=== PATIENT | female | born 1960 | race Hispanic/Latino ===

== ENCOUNTER 2018-01-06 15:25 | Emergency (ER) | payer SELFPAY ==
--- NOTE | 2018-01-06 16:34 | RAD REPORT ---
EXAM DESCRIPTION: CT - Head Brain Wo Cont - 01/06/2018 4:21 pm CLINICAL HISTORY: Right arm numbness since yesterday COMPARISON: None. TECHNIQUE: Computed axial tomography of the head was obtained. IV contrast was not requested. All CT scans are performed using dose optimization technique as appropriate and may include automated exposure control or mA/KV adjustment according to patient size. FINDINGS: 15 millimeter subtle low-density area is present within the posterior left frontal lobe. An intracranial bleed is not seen . The ventricles are normal in caliber. No extra-axial fluid collection is noted. Fluid within the sinuses/ mastoids is not seen. IMPRESSION: Small low-density area within the left frontal lobe may represent an acute infarct. MRI is recommended
--- NOTE | 2018-01-06 16:41 | RAD REPORT ---
EXAM DESCRIPTION: Abdelrahman Single View01/06/2018 4:35 pm CLINICAL HISTORY: Chest pain COMPARISON: none FINDINGS: The lungs appear clear of acute infiltrate. The heart is normal size IMPRESSION: No acute abnormalities displayed
[2018-01-06 16:53] LABS: Urine Bacteria >50 /HPF (<20); Urine Culture Reflex Order REFLEXED; Urine RBC <5 /HPF (NONE SEEN)
[2018-01-06 17:00] LABS: Absolute Lymphocytes (CBC) 2.2 K/uL (0.7-4.9); Absolute Monocytes 0.5 K/uL (0.1-1.3); Basophils % 0.6 % (0-1.3); Eosinophils % 3.9 % (0-4.4); Hematocrit 40.9 % (36.0-45.0); Lymphocytes % 27.8 % (15.3-44.8); MCH 29.1 pg (27.0-35.0); MCV 87.1 fL (80-100); MPV 8.4 fL (7.6-11.3); Monocytes % 5.9 % (3.3-12.3)
[2018-01-06] MEDS ORDERED: CLOPIDOGREL 75 MG TABLET ONE (17:00)
[2018-01-06] MEDS ORDERED: ASPIRIN 325 MG TAB ONE (17:00)
[2018-01-06 17:01] LABS: Urine Blood NEGATIVE (NEG); Urine Glucose 2+ (NEG); Urine Protein NEGATIVE (NEG); Urine pH 5.5 (5.0-7.0)
[2018-01-06 17:07] LABS: Protime INR 0.97
[2018-01-06] MEDS ORDERED: CEFTRIAXONE/SWI 1gm 1 GM/10 ML SYR ONE (17:23)
[2018-01-06 17:24] LABS: ALT/SGPT 37 U/L (12-78); AST/SGOT 18 U/L (15-37); Albumin 3.7 g/dL (3.4-5.0); Alkaline Phosphatase 103 U/L (45-117); BUN Blood Urea Nitrogen 13 mg/dL (7-18); Bicarbonate 31 mmol/L (21-32); Bilirubin Direct < 0.1 mg/dL (0-0.2); Bilirubin Total 0.2 mg/dL (0.2-1.0); CKMB Creatine Kinase MB < 1.0 ng/mL (0.3-3.6); Creatine Phosphokinase 52 U/L (26-192); Glucose Level 170 mg/dL (74-106); Magnesium 1.7 mg/dL (1.8-2.4); NT PRO-BNP 189 pg/mL (<125); Potassium 3.8 mmol/L (3.5-5.1); Protein, Total 7.9 g/dL (6.4-8.2); Sodium Level 142 mmol/L (136-145)
--- NOTE | 2018-01-06 17:32 | EDPHYS ---
Physician Documentation [facility] Name: Aikko Lee Age: 57 yrs Sex: Female : 1960 Arrival Date: 01/06/2018 Time: 15:28 Bed 14 Private MD: ED Physician Chapito Barraza HPI: 01/06 16:10 This 57 yrs old Female presents to ER via Ambulatory with complaints of right pm1 sided facial numbness. 16:10 The patient presents to the emergency department with paresthesias of the right side of pm1 the face, dorsal aspect of right forearm, difficulty with writing with right hand. Onset: The symptoms/episode began/occurred yesterday, at 17:00. Context: occurred outdoors, occurred while the patient was walking, while leaving work. Associated signs and symptoms: Pertinent positives: paresthesias, Pertinent negatives: altered mental status, fever, headache, seizure, syncope, near-syncope, blurred vision, loss of vision. Severity of symptoms: in the emergency department the symptoms have improved mildly, after taking a aspirin at home yesterday. Patient's baseline: Neuro: alert and fully oriented, Motor: no deficits, Ambulation: walks without assistance, Speech: normal. Current symptoms: paraesthesia to the right side of her face and right forearm. The patient has not experienced similar symptoms in the past. Historical: - Allergies: 15:38 Bactrim; aj - Home Meds: 15:38 aspirin 325 mg Oral TbEC 1 tab once daily [Active]; gabapentin 300 mg Oral cap 1 cap aj FIVE TIMES A DAY [Active]; metformin 1,000 mg Oral tab 1 tab 2 times per day [Active]; - PMHx: 15:38 Diabetes - NIDDM; CAD; "Minor heart attacks"; aj - PSHx: 15:38 Cholecystectomy; aj - Immunization history:: Adult Immunizations up to date. - Social history:: Smoking status: Patient/guardian denies using tobacco. - Ebola Screening: : Patient negative for fever greater than or equal to 101.5 degrees Fahrenheit, and additional compatible Ebola Virus Disease symptoms Patient denies exposure to infectious person Patient denies travel to an Ebola-affected area in the 21 days before illness onset No symptoms or risks identified at this time. ROS: 16:10 Constitutional: Negative for fever, chills, and weight loss, Eyes: Negative for injury, pm1 pain, redness, and discharge, ENT: Negative for injury, pain, and discharge, Neck: Negative for injury, pain, and swelling, Cardiovascular: Negative for chest pain, palpitations, and edema, Respiratory: Negative for shortness of breath, cough, wheezing, and pleuritic chest pain, Abdomen/GI: Negative for abdominal pain, nausea, vomiting, diarrhea, and constipation, Back: Negative for injury and pain, MS/Extremity: Negative for injury and deformity, Skin: Negative for injury, rash, and discoloration. 16:10 Neuro: Positive for numbness, of the dorsal aspect of right forearm and right side of her face. 16:10 Neuro: Positive for difficulty with writing with her right hand. pm1 Exam: 16:10 Constitutional: This is a well developed, well nourished patient who is awake, alert, pm1 and in no acute distress. Head/Face: Normocephalic, atraumatic. Eyes: Pupils equal round and reactive to light, extra-ocular motions intact. Lids and lashes normal. Conjunctiva and sclera are non-icteric and not injected. Cornea within normal limits. Periorbital areas with no swelling, redness, or edema. ENT: Nares patent. No nasal discharge, no septal abnormalities noted. Tympanic membranes are normal and external auditory canals are clear. Oropharynx with no redness, swelling, or masses, exudates, or evidence of obstruction, uvula midline. Mucous membranes moist. Neck: Trachea midline, no thyromegaly or masses palpated, and no cervical lymphadenopathy. Supple, full range of motion without nuchal rigidity, or vertebral point tenderness. No Meningismus. Chest/axilla: Normal chest wall appearance and motion. Nontender with no deformity. No lesions are appreciated. Cardiovascular: Regular rate and rhythm with a normal S1 and S2. No gallops, murmurs, or rubs. Normal PMI, no JVD. No pulse deficits. Respiratory: Lungs have equal breath sounds bilaterally, clear to auscultation and percussion. No rales, rhonchi or wheezes noted. No increased work of breathing, no retractions or nasal flaring. Abdomen/GI: Soft, non-tender, with normal bowel sounds. No distension or tympany. No guarding or rebound. No evidence of tenderness throughout. Back: No spinal tenderness. No costovertebral tenderness. Full range of motion. Skin: Warm, dry with normal turgor. Normal color with no rashes, no lesions, and no evidence of cellulitis. MS/ Extremity: Pulses equal, no cyanosis. Neurovascular intact. Full, normal range of motion. 16:10 Neuro: Orientation: is normal, Mentation: is normal, Memory: is normal, Cranial nerves: normal except sensory trigeminal, Decreased sensation on right forehead, right cheek, and right jaw, no facial droop present. Cerebellar function: dysmetria is noted on the right, Normal with left hand, Motor: moves all fours, strength is 5/5 in all extremities, Sensation: numbness, of the dorsal aspect of right forearm - lateral cutaneous innervation - unable to differentiate sharp and dull, seizure activity, is not displayed by the patient. 16:10 Neuro: Cerebellar function: Romberg testing is negative. pm1 Vital Signs: 15:38 BP 170 / 94; Pulse 78; Resp 16; Temp 99.2; Pulse Ox 97% on R/A; Weight 111.13 kg; aj Height 5 ft. 4 in. (162.56 cm); 16:30 BP 148 / 59; Pulse 71; Resp 20; Pulse Ox 100% on R/A; rb1 17:30 BP 157 / 63; Pulse 70; Resp 21; Pulse Ox 98% on R/A; Pain 0/10; rb1 18:00 BP 134 / 54; Pulse 67; Resp 20; Pulse Ox 97% on R/A; rb1 18:45 BP 134 / 65; Pulse 62; Resp 19; Pulse Ox 97% ; Pain 5/10; rb1 19:45 BP 154 / 59; Pulse 68; Resp 18; Pulse Ox 98% on R/A; Pain 0/10; aa1 15:38 Body Mass Index 42.05 (111.13 kg, 162.56 cm) aj NIH Stroke Scale Scores: 16:00 NIHSS Score: 2 rb1 16:10 NIHSS Score: 2 pm1 MDM: 15:57 Patient medically screened. pm1 16:46 ED course: Patient with onset of symptoms 1700 yesterday, therefore patient is not a pm1 TPA candidate (Onset of symptoms greater than 3 hours) and not given TPA. 17:21 Data reviewed: vital signs. Data interpreted: Pulse oximetry:. Counseling: I had a pm1 detailed discussion with the patient and/or guardian regarding: the historical points, exam findings, and any diagnostic results supporting the discharge/admit diagnosis, radiology results, the need to transfer to another facility, for higher level of care, [facility] does not immediately have the required specialist. 17:46 Physician consultation: Neurologist Jovanny was contacted at 17:46, regarding regarding pm1 transfer, patient's condition, and will see patient. 17:55 Physician consultation: Hospitalist Florentino was contacted at 17:55, regarding pm1 admission, patient's condition, and will see patient. 01/06 16:08 Order name: Basic Metabolic Panel; Complete Time: 17:32 pm1 01/06 16:08 Order name: CBC with Diff; Complete Time: 17:08 pm01/06 16:08 Order name: Ckmb; Complete Time: 17:32 pm01/06 16:08 Order name: CPK; Complete Time: 17:32 pm01/06 16:08 Order name: LFT's; Complete Time: 17:32 pm01/06 16:08 Order name: Magnesium; Complete Time: 17:32 pm01/06 16:08 Order name: NT PRO-BNP; Complete Time: 17:32 pm1 01/06 16:08 Order name: PT-INR; Complete Time: 17:21 pm01/06 16:08 Order name: Ptt, Activated; Complete Time: 17:21 pm01/06 16:08 Order name: Troponin (emerg Dept Use Only); Complete Time: 17:21 pm01/06 16:08 Order name: XRAY Chest (1 view); Complete Time: 16:46 pm01/06 16:37 Order name: Urine Microscopic Only; Complete Time: 17:08 ag 01/06 16:54 Order name: Urine Dipstick--Ancillary (enter results); Complete Time: 17:08 ss 01/06 16:54 Order name: Urine Culture EDMS 01/06 16:08 Order name: EKG; Complete Time: 16:09 pm01/06 16:08 Order name: Cardiac monitoring; Complete Time: 17:04 pm01/06 16:08 Order name: EKG - Nurse/Tech; Complete Time: 17:04 pm01/06 16:08 Order name: IV Saline Lock; Complete Time: 17:04 pm1 01/06 16:08 Order name: Labs collected and sent; Complete Time: 17:04 pm1 01/06 16:08 Order name: O2 Per Protocol; Complete Time: 17:05 pm1 01/06 16:08 Order name: O2 Sat Monitoring; Complete Time: 17:05 pm1 01/06 16:08 Order name: Urine Dipstick-Ancillary (obtain specimen); Complete Time: 17:11 pm1 01/06 16:08 Order name: CT Head Brain wo Cont; Complete Time: 16:46 pm1 01/06 16:21 Order name: Stroke Swallow Screen; Complete Time: 17:03 pm1 Administered Medications: 16:56 Drug: Aspirin 325 mg Route: PO; rb1 17:18 Follow up: Response: No adverse reaction rb1 16:56 Drug: PlaVIX 75 mg Route: PO; rb1 17:18 Follow up: Response: No adverse reaction rb1 17:40 Drug: Rocephin 1 grams Route: IV; Rate: calculated rate; Site: left antecubital; rb1 18:00 Follow up: Response: No adverse reaction; IV Status: Completed infusion rb1 18:35 Drug: Magnesium Sulfate 1 grams Route: IVPB; Infused Over: 1 hrs; Site: left ss antecubital; 19:35 Follow up: IV Status: Completed infusion aa1 18:35 Drug: foLIC Acid 1 mg Route: IVPB; Site: left antecubital; ss 19:35 Follow up: IV Status: Completed infusion aa1 18:52 Drug: Tylenol 500 mg Route: PO; rb1 19:35 Follow up: Response: No adverse reaction; Pain is decreased aa1 Disposition: 01/07 07:02 Co-signature as Attending Physician, Chapito Barraza MD I agree with the assessment and nidia plan of care. Disposition: 01/06/18 17:32 Transfer ordered to [facility]. Diagnosis is Cerebral infarction. - Reason for transfer: Higher level of care. - Accepting physician is [facility]. - Condition is Stable. - Problem is new. - Symptoms have improved. NIH Stroke Scale - NIH Stroke Score Date: 01/06/2018 Time: 16:00 Total Score = 2 1a. Level of Consciousness (LOC) - 0(Alert) 1b. Level of Consciousness (LOC) (Year \\T\\ Age) - 0(Both) 1c. LOC Commands (Open \\T\\ Closes Eyes/Lining Repairer) - 0(Both) 2. Best Gaze (Lateral Gaze Paresis) - 0(Normal) 3. Visual Field Loss - 0(No visual loss) 4. Facial Palsy - 0(Normal) 5a. Left Arm: Motor (10-second hold) - 0(No drift) 5b. Right Arm: Motor (10-second hold) - 0(No drift) 6a. Left Leg: Motor (5-second hold - always test supine) - 0(No drift) 6b. Right Leg: Motor (5-second hold - always test supine) - 0(No drift) 7. Limb Ataxia (finger/nose \\T\\ heel/martinez - test with eyes open) - 1(Present in one limb) 8. Sensory Loss (pinprick arms/legs/face) - 1(Mild to moderate loss) 9. Best Language: Aphasia (description/naming/reading) - 0(No aphasia) 10. Dysarthria (speech clarity - read or repeat words) - 0(Normal) 11. Extinction and Inattention (visual/tactile/auditory/spatial/personal) - 0(No abnormality) Initials: rb1 NIH Stroke Scale - NIH Stroke Score Date: 01/06/2018 Time: 16:10 Total Score = 2 1a. Level of Consciousness (LOC) - 0(Alert) 1b. Level of Consciousness (LOC) (Year \\T\\ Age) - 0(Both) 1c. LOC Commands (Open \\T\\ Closes Eyes/Lining Repairer) - 0(Both) 2. Best Gaze (Lateral Gaze Paresis) - 0(Normal) 3. Visual Field Loss - 0(No visual loss) 4. Facial Palsy - 0(Normal) 5a. Left Arm: Motor (10-second hold) - 0(No drift) 5b. Right Arm: Motor (10-second hold) - 0(No drift) 6a. Left Leg: Motor (5-second hold - always test supine) - 0(No drift) 6b. Right Leg: Motor (5-second hold - always test supine) - 0(No drift) 7. Limb Ataxia (finger/nose \\T\\ heel/martinez - test with eyes open) - 1(Present in one limb) 8. Sensory Loss (pinprick arms/legs/face) - 1(Mild to moderate loss) 9. Best Language: Aphasia (description/naming/reading) - 0(No aphasia) 10. Dysarthria (speech clarity - read or repeat words) - 0(Normal) 11. Extinction and Inattention (visual/tactile/auditory/spatial/personal) - 0(No abnormality) Initials: pm1 Signatures: Dispatcher [employer] Madelyn Mendiola RN RN aa1 Angelica Webber RN RN aj Anderson, Corey, MD MD cha Smirch, Shelby, RN RN ss Barber, Rebecca, RN RN rb1 Marinas, Patrick, [employer]ER[employer] RAIL CAR PAINTER/SANDBLASTER pm1 Corrections: (The following items were deleted from the chart) 01/06 19:17 16:08 Urine Test ordered. pm1 aa1 20:22 17:32 01/06/2018 17:32 Transfer ordered to [facility]. aa1 Diagnosis is Cerebral infarction. Reason for transfer: Higher level of care. Accepting physician is [facility]. Condition is Stable. Problem is new. Symptoms have improved. pm1
--- NOTE | 2018-01-06 17:32 | ER ---
Nurse's Notes [facility] Name: Akiko Lee Age: 57 yrs Sex: Female : 1960 Arrival Date: 01/06/2018 Time: 15:28 Bed 14 Private MD: Diagnosis: Cerebral infarction Presentation: 01/06 15:37 Presenting complaint: Patient states: Reports numbness to right side of face and right aj forearm since 1700 yesterday. Patient reports symptoms improved after taking aspirin. Transition of care: patient was not received from another setting of care. Onset of symptoms was January 05, 2018 at 17:00. Risk Assessment: Do you want to hurt yourself or someone else? Patient reports no desire to harm self or others. Initial Sepsis Screen: Does the patient meet any 2 criteria? No. Patient's initial sepsis screen is negative. Does the patient have a suspected source of infection? No. Patient's initial sepsis screen is negative. Care prior to arrival: None. 15:37 Method Of Arrival: Ambulatory 15:37 Acuity: KESHA 3 aj Triage Assessment: 15:38 General: Appears in no apparent distress. comfortable, Behavior is calm, cooperative, aj appropriate for age. Pain: Denies pain. Neuro: Level of Consciousness is awake, alert, obeys commands, Oriented to person, place, time, situation, Appropriate for age. Neuro: Child Support Officer are equal bilaterally Moves all extremities. Full function Gait is steady, Speech is normal, Facial symmetry appears normal, Reports numbness in right sabianism, right zygomatic area, right cheek, right antecubital area and dorsal aspect of right forearm. Respiratory: Airway is patent Respiratory effort is even, unlabored, Respiratory pattern is regular, symmetrical. Derm: Skin is intact, is healthy with good turgor, Skin is pink, warm \\T\\ dry. normal. Historical: - Allergies: 15:38 Bactrim; aj - Home Meds: 15:38 aspirin 325 mg Oral TbEC 1 tab once daily [Active]; gabapentin 300 mg Oral cap 1 cap aj FIVE TIMES A DAY [Active]; metformin 1,000 mg Oral tab 1 tab 2 times per day [Active]; - PMHx: 15:38 Diabetes - NIDDM; CAD; "Minor heart attacks"; aj - PSHx: 15:38 Cholecystectomy; aj - Immunization history:: Adult Immunizations up to date. - Social history:: Smoking status: Patient/guardian denies using tobacco. - Ebola Screening: : Patient negative for fever greater than or equal to 101.5 degrees Fahrenheit, and additional compatible Ebola Virus Disease symptoms Patient denies exposure to infectious person Patient denies travel to an Ebola-affected area in the 21 days before illness onset No symptoms or risks identified at this time. Screenin:45 Abuse screen: Denies threats or abuse. Nutritional screening: No deficits noted. rb1 Tuberculosis screening: No symptoms or risk factors identified. Fall Risk None identified. 16:00 Patient has been NPO before screening. The patient is alert, able to follow commands. rb1 The patient does not exhibit slurred or garbled speech The patient is not exhibiting difficulty speaking. The patient does not exhibit difficulty understanding words. The patient is able to swallow own secretions with no drooling or need for suction. Patient tolerated one teaspoon of water. No drooling, immediate coughing, gurgling, or clearing of the throat was noted. The patient tolerated 90mL of water. No drooling, immediate coughing, gurgling, or clearing of the throat was noted. The patient passed the bedside swallow screening. Oral medications may be given as ordered. Contact Physician for further diet orders. Provider notified of bedside swallow screening results: Je Vergara NP. Assessment: 15:45 General: Appears in no apparent distress. comfortable, obese, Behavior is calm, rb1 cooperative. Pain: Denies pain. Neuro: Level of Consciousness is awake, alert, obeys commands, Oriented to person, place, time, situation, Child Support Officer are equal bilaterally Moves all extremities. Gait is steady, Speech is normal, Facial symmetry appears normal, Pupils are PERRLA, Reports numbness in right arm and right side of face since yesterday. Cardiovascular: Capillary refill < 3 seconds is brisk in bilateral fingers. Respiratory: Airway is patent Respiratory effort is even, unlabored, Respiratory pattern is regular, symmetrical. GI: No signs and/or symptoms were reported involving the gastrointestinal system. : No signs and/or symptoms were reported regarding the genitourinary system. Derm: Skin is dry, Skin is normal, Skin temperature is warm. Musculoskeletal: Range of motion: intact in all extremities. 16:40 Reassessment: Patient appears in no apparent distress at this time. No changes from rb1 previously documented assessment. 17:38 Reassessment: Patient and/or family updated on plan of care and expected duration. Pain rb1 level reassessed. Patient is alert, oriented x 3, equal unlabored respirations, skin warm/dry/pink. Family at bedside. Patient denies pain at this time. 18:00 Reassessment: Patient appears in no apparent distress at this time. Pt. and family rb1 updated on POC. 18:30 Reassessment: Tried to call [facility] to give report but was left on hold. rb1 18:38 Reassessment: Called report to CALOS Trevino at [facility]. Information from the [facility] was rb1 given and all test results. All questions asked and answered. 18:50 Reassessment: Patient appears in no apparent distress at this time. Patient and/or rb1 family updated on plan of care and expected duration. Pain level reassessed. Patient is alert, oriented x 3, equal unlabored respirations, skin warm/dry/pink. Updated pt. and family updated on POC. 19:37 Reassessment: Patient appears in no apparent distress at this time. Patient and/or aa1 family updated on plan of care and expected duration. Pain level reassessed. Patient is alert, oriented x 3, equal unlabored respirations, skin warm/dry/pink. Awaiting EMS for transfer. Reports headache improved. 20:02 Reassessment: Patient appears in no apparent distress at this time. Patient is alert, aa1 oriented x 3, equal unlabored respirations, skin warm/dry/pink. EMS present for transfer to [facility]. Vital Signs: 15:38 BP 170 / 94; Pulse 78; Resp 16; Temp 99.2; Pulse Ox 97% on R/A; Weight 111.13 kg; aj Height 5 ft. 4 in. (162.56 cm); 16:30 BP 148 / 59; Pulse 71; Resp 20; Pulse Ox 100% on R/A; rb1 17:30 BP 157 / 63; Pulse 70; Resp 21; Pulse Ox 98% on R/A; Pain 0/10; rb1 18:00 BP 134 / 54; Pulse 67; Resp 20; Pulse Ox 97% on R/A; rb1 18:45 BP 134 / 65; Pulse 62; Resp 19; Pulse Ox 97% ; Pain 5/10; rb1 19:45 BP 154 / 59; Pulse 68; Resp 18; Pulse Ox 98% on R/A; Pain 0/10; aa1 15:38 Body Mass Index 42.05 (111.13 kg, 162.56 cm) aj NIH Stroke Scale Scores: 16:00 NIHSS Score: 2 rb1 16:10 NIHSS Score: 2 pm1 ED Course: 15:28 Patient arrived in ED. mr 15:38 Triage completed. aj 15:38 Arm band placed on left wrist. Patient placed in an exam room. aj 15:45 Patient has correct armband on for positive identification. Placed in gown. Bed in low rb1 position. Call light in reach. Side rails up X2. threat monitoring analyst on. Pulse ox on. NIBP on. 15:57 Je Vergara NP is PHCP. pm1 15:57 Chapito Barraza MD is Attending Physician. pm1 16:21 CT completed. Patient tolerated procedure well. Patient moved to CT. Patient moved back ar from CT. 16:21 CT Head Brain wo Cont In Process Unspecified. EDMS 16:28 X-ray completed. Portable x-ray completed in exam room. Patient tolerated procedure ag1 well. 16:29 XRAY Chest (1 view) In Process Unspecified. EDMS 16:30 Breana Prajapati, CALOS is Primary Nurse. rb1 16:52 EKG done, by drinking water technician. reviewed by Je Vergara NP. sm3 17:10 Inserted saline lock: 20 gauge in left antecubital area, using aseptic technique. Blood ag collected. 17:11 Urine Culture Sent. ag 19:00 Report given to CALOS Joshi. rb1 20:07 No provider procedures requiring assistance completed. Patient transferred, IV remains aa1 in place. Administered Medications: 16:56 Drug: Aspirin 325 mg Route: PO; rb1 17:18 Follow up: Response: No adverse reaction rb1 16:56 Drug: PlaVIX 75 mg Route: PO; rb1 17:18 Follow up: Response: No adverse reaction rb1 17:40 Drug: Rocephin 1 grams Route: IV; Rate: calculated rate; Site: left antecubital; rb1 18:00 Follow up: Response: No adverse reaction; IV Status: Completed infusion rb1 18:35 Drug: Magnesium Sulfate 1 grams Route: IVPB; Infused Over: 1 hrs; Site: left ss antecubital; 19:35 Follow up: IV Status: Completed infusion aa1 18:35 Drug: foLIC Acid 1 mg Route: IVPB; Site: left antecubital; ss 19:35 Follow up: IV Status: Completed infusion aa1 18:52 Drug: Tylenol 500 mg Route: PO; rb1 19:35 Follow up: Response: No adverse reaction; Pain is decreased aa1 Outcome: 17:32 ER care complete, transfer ordered by . pm1 20:07 Transferred by ground EMS to [facility]. aa1 20:07 Condition: stable 20:07 Instructed on the need for transfer, Demonstrated understanding of instructions. 20:07 Patient left the ED. aa1 NIH Stroke Scale - NIH Stroke Score Date: 01/06/2018 Time: 16:00 Total Score = 2 1a. Level of Consciousness (LOC) - 0(Alert) 1b. Level of Consciousness (LOC) (Year \\T\\ Age) - 0(Both) 1c. LOC Commands (Open \\T\\ Closes Eyes/Core Machine Operator) - 0(Both) 2. Best Gaze (Lateral Gaze Paresis) - 0(Normal) 3. Visual Field Loss - 0(No visual loss) 4. Facial Palsy - 0(Normal) 5a. Left Arm: Motor (10-second hold) - 0(No drift) 5b. Right Arm: Motor (10-second hold) - 0(No drift) 6a. Left Leg: Motor (5-second hold - always test supine) - 0(No drift) 6b. Right Leg: Motor (5-second hold - always test supine) - 0(No drift) 7. Limb Ataxia (finger/nose \\T\\ heel/martinez - test with eyes open) - 1(Present in one limb) 8. Sensory Loss (pinprick arms/legs/face) - 1(Mild to moderate loss) 9. Best Language: Aphasia (description/naming/reading) - 0(No aphasia) 10. Dysarthria (speech clarity - read or repeat words) - 0(Normal) 11. Extinction and Inattention (visual/tactile/auditory/spatial/personal) - 0(No abnormality) Initials: rb1 NIH Stroke Scale - NIH Stroke Score Date: 01/06/2018 Time: 16:10 Total Score = 2 1a. Level of Consciousness (LOC) - 0(Alert) 1b. Level of Consciousness (LOC) (Year \\T\\ Age) - 0(Both) 1c. LOC Commands (Open \\T\\ Closes Eyes/Core Machine Operator) - 0(Both) 2. Best Gaze (Lateral Gaze Paresis) - 0(Normal) 3. Visual Field Loss - 0(No visual loss) 4. Facial Palsy - 0(Normal) 5a. Left Arm: Motor (10-second hold) - 0(No drift) 5b. Right Arm: Motor (10-second hold) - 0(No drift) 6a. Left Leg: Motor (5-second hold - always test supine) - 0(No drift) 6b. Right Leg: Motor (5-second hold - always test supine) - 0(No drift) 7. Limb Ataxia (finger/nose \\T\\ heel/martinez - test with eyes open) - 1(Present in one limb) 8. Sensory Loss (pinprick arms/legs/face) - 1(Mild to moderate loss) 9. Best Language: Aphasia (description/naming/reading) - 0(No aphasia) 10. Dysarthria (speech clarity - read or repeat words) - 0(Normal) 11. Extinction and Inattention (visual/tactile/auditory/spatial/personal) - 0(No abnormality) Initials: pm1 Signatures: Dispatcher [employer] EDMadelyn Kuhn RN RN aa1 Angelica Webber RN Courtney Gauthier mr Homa Adan, RN CALOS Yung, Lakeisha ag Ondina, Peggy ag1 Breana Prajapati, Je Abrams RN, NP TEXTILE COLORIST FORMULATOR pm1 Del Dale Shakira 3 Corrections: (The following items were deleted from the chart) 18:06 16:40 Patient has been NPO before screening. The patient is alert, able to rb1 follow commands. The patient does not exhibit slurred or garbled speech The patient is not exhibiting difficulty speaking. The patient does not exhibit difficulty understanding words. The patient is able to swallow own secretions with no drooling or need for suction. Patient tolerated one teaspoon of water. No drooling, immediate coughing, gurgling, or clearing of the throat was noted. The patient tolerated 90mL of water. No drooling, immediate coughing, gurgling, or clearing of the throat was noted. The patient passed the bedside swallow screening. Oral medications may be given as ordered. Contact Physician for further diet orders. Provider notified of bedside swallow screening results: Je Vergara NP rb1 20:24 20:22 Patient left the ED. aa1 aa1
--- NOTE | 2018-01-06 17:56 | EKG ---
Test Date: 2018-01-06 Test Time: 16:43:46 Table Attendant: LUIS MEASUREMENT RESULTS: Intervals: Rate: 71 MN: 164 QRSD: 80 QT: 402 QTc: 436 Burson: P: 30 MN: 164 QRS: -44 T: 41 INTERPRETIVE STATEMENTS: Normal sinus rhythm with sinus arrhythmia Left axis deviation Inferior infarct, age undetermined Cannot rule out Anterior infarct, age undetermined Abnormal ECG Compared to ECG 01/05/2006 02:17:39 Myocardial infarct finding now present T-wave abnormality no longer present Electronically Signed On 01-06-18 17:56:30 CDT by Jose Ramon Llanos
[2018-01-06] MEDS ORDERED: Magnesium Sulfate 1gm IVPB 1 GM/50 ML BAG IV ONE (18:28)
[2018-01-06] MEDS ORDERED: FOLIC ACID 5 MG/ML VIAL ONE (18:30)
[2018-01-06] MEDS ORDERED: ACETAMINOPHEN 500 MG TAB ONE (18:53)
== END 2018-01-06 20:22 | disposition short-term general hospital (02) ==
LOC: ER 15:25
DX: I63.9 Cerebral infarction, unspecified (principal); R29.702 NIHSS score 2; E11.9 Type 2 diabetes mellitus without complications; Z79.82 Long term (current) use of aspirin; Z88.1 Allergy status to other antibiotic agents
CPT/HCPCS: 36415; 70450; 71045; 80048; 80076; 81003; 81015; 82550; 82553; 83735; 83880; 84484; 85025; 85610; 85730; 87077; 87086; 87088; 87186; 93005; 96365; 96367; 96368; 99285; J0696; J3475

== ENCOUNTER 2024-10-08 10:43 | Emergency (ER) | payer SELFPAY ==
[2024-10-08] MEDS ORDERED: ASPIRIN EC 81 MG TAB PO ONE (10:51)
--- NOTE | 2024-10-08 11:42 | RAD REPORT ---
Procedure: Chest Single View HISTORY: Chest pain COMPARISON: 2018 FINDINGS: The lungs appear clear of acute infiltrate. No significant pleural effusion noted. The heart is normal size. Metallic structure overlies the left aspect of the heart presumably a loop recorder which should be c orrelated clinically. IMPRESSION: No acute abnormality is displayed.
[2024-10-08 12:16] LABS: Absolute Eosinophils 0.2 K/uL (0-0.5); Absolute Lymphocytes (CBC) 1.5 K/uL (0.7-4.9); Absolute Monocytes 0.5 K/uL (0.1-1.3); Absolute Neutrophil 5.1 K/uL (1.8-8.0); Basophils % 0.7 % (0-1.3); Eosinophils % 2.5 % (0-4.4); Hematocrit 36.2 % (36.0-45.0); Hemoglobin 12.1 g/dL (12.0-15.0); Lymphocytes % 20.7 % (15.3-44.8); MCH 28.9 pg (27.0-35.0); MCHC 33.5 g/dL (32.0-36.0); Monocytes % 6.9 % (3.3-12.3); Neutrophils % 69.2 % (41.7-73.7); Platelets 284 thou/uL (152-406); Red Cell Distribution Width 14.3 % (12.1-15.2)
[2024-10-08 12:37] LABS: ALT/SGPT 17 U/L (13-56); Albumin 3.4 g/dL (3.4-5.0); Albumin/Globulin Ratio 0.7 (1.1-1.8); Alkaline Phosphatase 112 U/L (45-117); Anion Gap 7.6 mEq/L (5.0-15.0); BUN Blood Urea Nitrogen 21 mg/dL (7-18); Bicarbonate 27 mEq/L (21-32); Bilirubin Total 0.3 mg/dL (0.2-1.0); Globulin 4.6 g/dL (2.3-3.5); Glomerular Filtration Rate 61 ml/min (=/>90); Glucose Level 166 mg/dL (74-106); Lipase 33 U/L (13-75); Potassium 3.6 mEq/L (3.5-5.1); Sodium Level 138 mEq/L (136-145); Troponin High Sensitivity 3.4 pg/mL (<58.9)
[2024-10-08 12:43] LABS: AST/SGOT < 10 U/L (15-37); Bilirubin Direct < 0.2 mg/dL (0-0.2); Bilirubin Indirect, Calculated 0.1 mg/dL (0.2-0.8)
--- NOTE | 2024-10-08 13:04 | ER ---
Nurse's Notes [facility] Name: Akiko Lee Age: 64 yrs Sex: Female : 1960 Arrival Date: 10/08/2024 Time: 10:43 Bed 19 Private MD: Diagnosis: Chest pain, unspecified Presentation: 10/08 10:51 Chief complaint: Patient states: Chest pain started yesterday at 1500. Intermittent. ld1 Coronavirus screen: At this time, the client does not indicate any symptoms associated with coronavirus-19. Ebola Screen: No symptoms or risks identified at this time. Initial Sepsis Screen: Does the patient meet any 2 criteria? No. Patient's initial sepsis screen is negative. Does the patient have a suspected source of infection? No. Patient's initial sepsis screen is negative. Risk Assessment: Do you want to hurt yourself or someone else? Patient reports no desire to harm self or others. Onset of symptoms was October 08, 2024. 10:51 Method Of Arrival: Ambulatory ld1 10:51 Acuity: KESHA 3 ld1 Triage Assessment: 10:53 General: Appears in no apparent distress. comfortable, Behavior is calm, cooperative, ld1 appropriate for age. Pain: Complains of pain in anterior aspect of left upper chest Pain does not radiate. Pain currently is 8 out of 10 on a pain scale. at worst was 8 out of 10 on a pain scale. Quality of pain is described as sharp, shooting, Pain began suddenly, Is intermittent. EENT: No signs and/or symptoms were reported regarding the EENT system. Neuro: Level of Consciousness is awake, alert, obeys commands, Oriented to person, place, time, situation. Cardiovascular: Capillary refill < 3 seconds Patient's skin is warm and dry. Rhythm is sinus rhythm. Respiratory: Airway is patent Respiratory effort is even, unlabored. GI: Abdomen is round non-distended. : No signs and/or symptoms were reported regarding the genitourinary system. Derm: No signs and/or symptoms reported regarding the dermatologic system. Musculoskeletal: No signs and/or symptoms reported regarding the musculoskeletal system. Historical: - Allergies: 10:52 Bactrim; ld1 - PMHx: 10:52 CAD; Diabetes - NIDDM; ld1 10:53 "Minor heart attacks"; ld1 10:55 CVA; ld1 - PSHx: 10:52 None; ld1 - Immunization history:: Adult Immunizations up to date. - Infectious Disease History:: Denies. - Social history:: Smoking status: Patient denies any tobacco usage or history of. - Family history:: not pertinent. Screenin:00 [facility] ED Fall Risk Assessment (Adult) History of falling in the last 3 months, aa5 including since admission No falls in past 3 months (0 pts) Confusion or Disorientation No (0 pts) Intoxicated or Sedated No (0 pts) Impaired Gait No (0 pts) Mobility Assist Device Used No (0 pt) Altered Elimination No (0 pt) Score/Fall Risk Level 0 - 2 = Low Risk Oriented to surroundings, Maintained a safe environment, Educated pt \\T\\ family on fall prevention, incl call for assistance when getting out of bed, Assessed \\T\\ reinforced patient's understanding of fall precautions. Abuse screen: Denies threats or abuse. Nutritional screening: No deficits noted. Tuberculosis screening: No symptoms or risk factors identified. Assessment: 12:00 General: Appears comfortable, Behavior is calm, cooperative. Pain: Complains of pain in aa5 anterior aspect of left upper chest Pain does not radiate. Pain currently is 0 out of 10 on a pain scale. at worst was 8 out of 10 on a pain scale. Quality of pain is described as sharp, Pain began 1 day ago. Is intermittent, lasting a few seconds. Neuro: Level of Consciousness is awake, alert, obeys commands, Oriented to person, place, time, situation. Cardiovascular: Heart tones S1 S2 present Rhythm is sinus rhythm. Respiratory: Airway is patent Respiratory effort is even, unlabored, Respiratory pattern is regular, symmetrical, Denies cough, shortness of breath. GI: Abdomen is round non-distended, Patient currently denies nausea, vomiting. : No signs and/or symptoms were reported regarding the genitourinary system. EENT: No signs and/or symptoms were reported regarding the EENT system. Derm: Skin is pink, warm \\T\\ dry. Musculoskeletal: Range of motion: intact in all extremities. 12:45 Reassessment: Patient is alert, oriented x 3, equal unlabored respirations, skin aa5 warm/dry/pink. Pain: Pain currently is 0 out of 10 on a pain scale. at worst was 8 out of 10 on a pain scale. Is intermittent, lasting a few seconds. 13:50 Reassessment: Patient is alert, oriented x 3, equal unlabored respirations, skin aa5 warm/dry/pink. Vital Signs: 10:51 BP 153 / 71; Pulse 67; Resp 18; Temp 98.2(O); Pulse Ox 99% on R/A; Weight 105.69 kg; ld1 Height 5 ft. 4 in. ; Pain 8/10; 12:00 BP 153 / 61; Pulse 65; Resp 18 S; Pulse Ox 99% on R/A; aa5 12:46 BP 149 / 58; Pulse 60; Resp 16 S; Pulse Ox 100% on R/A; aa5 13:30 BP 152 / 70; Pulse 59; Resp 16 S; Pulse Ox 99% on R/A; aa5 10:51 Body Mass Index 39.99 (105.69 kg, 162.56 cm) ld1 10:51 Pain Scale: Adult ld1 ED Course: 10:45 Patient arrived in ED. cj3 10:46 Allan De La Rosa MD is Attending Physician. rt 10:52 Triage completed. ld1 10:53 Arm band placed on right wrist. ld1 11:33 XRAY Chest (1 view) In Process Unspecified. EDMS 12:00 Pao Osborne, RN is Primary Nurse. aa5 12:00 Patient has correct armband on for positive identification. Bed in low position. Call aa5 light in reach. Side rails up X 1. Adult w/ patient. Client placed on continuous cardiac and pulse oximetry monitoring. NIBP monitoring applied. lunchroom monitor on. Pulse ox on. NIBP on. 12:00 Initial lab(s) drawn, by me, sent to lab. Inserted saline lock: 20 gauge in left aa5 antecubital area, using aseptic technique. Blood collected. Flushed with 10 mL NS. 12:00 No provider procedures requiring assistance completed. Patient maintains SpO2 aa5 saturation greater than 95% on room air. 13:02 John Whaley MD is Referral Physician. rt 13:50 IV discontinued, intact, bleeding controlled, No redness/swelling at site. Pressure aa5 dressing applied. Administered Medications: 10:58 Drug: Aspirin PO Chewable Tablet 324 mg PO once; 81 mg tablets x 4 Route: PO; ld1 12:00 Follow up: Response: No adverse reaction aa5 Medication: 12:00 VIS not applicable for this client. aa5 Outcome: 13:03 Discharge ordered by . rt 13:50 Discharged to home ambulatory, with family, aa5 13:50 Condition: stable 13:50 Discharge instructions given to patient, Instructed on discharge instructions, follow up and referral plans. Demonstrated understanding of instructions, follow-up care, 13:54 Patient left the ED. ap3 Signatures: Dispatcher [employer] EDVA Pao Osborne RN RN aa5 Angelica Cardoso RN RN ap3 Makeda Darnell RN RN ld1 Allan De La Rosa MD MD rt Yanelis Powers cj3 Corrections: (The following items were deleted from the chart) 10:53 10:52 PMHx: "Minor heart attacks"; ld1 ld1
--- NOTE | 2024-10-08 13:04 | EDPHYS ---
Physician Documentation [facility] Name: Akiko Lee Age: 64 yrs Sex: Female : 1960 Arrival Date: 10/08/2024 Time: 10:43 Bed 19 Private MD: ED Physician Allan De La Rosa HPI: 10/08 12:13 This 64 yrs old Female presents to ER via Ambulatory with complaints of Chest rt Pain. 12:13 Patient presents to the ED with intermittent chest pain starting yesterday. States that rt these episodes last for about 4 minutes and then resolved spontaneously. Denies inciting factors or aggravating relieving factors. Denies other acute complaints, symptoms are moderate severity, no other aggravating alleviating factors, denies any pain at this time.. Historical: - Allergies: 10:52 Bactrim; ld1 - PMHx: 10:52 CAD; Diabetes - NIDDM; ld1 10:53 "Minor heart attacks"; ld1 10:55 CVA; ld1 - PSHx: 10:52 None; ld1 - Immunization history:: Adult Immunizations up to date. - Infectious Disease History:: Denies. - Social history:: Smoking status: Patient denies any tobacco usage or history of. - Family history:: not pertinent. ROS: 12:13 Constitutional: Negative for fever, chills, and weight loss, Respiratory: Negative for rt shortness of breath, cough, wheezing, and pleuritic chest pain, Abdomen/GI: Negative for abdominal pain, nausea, vomiting, diarrhea, and constipation, MS/Extremity: Negative for injury and deformity, Skin: Negative for injury, rash, and discoloration, Neuro: Negative for headache, weakness, numbness, tingling, and seizure, 12:13 Cardiovascular: Positive for chest pain, Negative for edema, Exam: 12:13 Constitutional: This is a well developed, well nourished patient who is awake, alert, rt and in no acute distress. Head/Face: Normocephalic, atraumatic. Chest/axilla: Normal chest wall appearance and motion. Nontender with no deformity. No lesions are appreciated. Cardiovascular: Regular rate and rhythm with a normal S1 and S2. No gallops, murmurs, or rubs. Normal PMI, no JVD. No pulse deficits. Respiratory: Lungs have equal breath sounds bilaterally, clear to auscultation and percussion. No rales, rhonchi or wheezes noted. No increased work of breathing, no retractions or nasal flaring. Abdomen/GI: Soft, non-tender, with normal bowel sounds. No distension or tympany. No guarding or rebound. No evidence of tenderness throughout. Skin: Warm, dry with normal turgor. Normal color with no rashes, no lesions, and no evidence of cellulitis. MS/ Extremity: Pulses equal, no cyanosis. Neurovascular intact. Full, normal range of motion. Neuro: Awake and alert, GCS 15, oriented to person, place, time, and situation. Cranial nerves II-XII grossly intact. Motor strength 5/5 in all extremities. Sensory grossly intact. Cerebellar exam normal. Normal gait. 12:13 ECG was reviewed by the Attending Physician. Vital Signs: 10:51 BP 153 / 71; Pulse 67; Resp 18; Temp 98.2(O); Pulse Ox 99% on R/A; Weight 105.69 kg; ld1 Height 5 ft. 4 in. ; Pain 8/10; 12:00 BP 153 / 61; Pulse 65; Resp 18 S; Pulse Ox 99% on R/A; aa5 12:46 BP 149 / 58; Pulse 60; Resp 16 S; Pulse Ox 100% on R/A; aa5 13:30 BP 152 / 70; Pulse 59; Resp 16 S; Pulse Ox 99% on R/A; aa5 10:51 Body Mass Index 39.99 (105.69 kg, 162.56 cm) ld1 10:51 Pain Scale: Adult ld1 MDM: 10:52 Medical Screening Exam initiated rt 13:03 Differential diagnosis: ACS, nonspecific chest pain, chest wall pain, pneumonia. HEART rt Score: History: Slightly Suspicious (0), ECG: Non specific repolarization disturbance / LBTB / PM (1), Age: > 45 and < 65 years (1), Risk Factors: 1 or 2 risk factors (1), Troponin: < or = 1 x Normal Limit (0), Total Score = 3. The patient was given aspirin in the Emergency Department. Data reviewed: vital signs, nurses notes, lab test result(s), EKG, radiologic studies. Consideration of Admission/Observation Escalation of care including admission/observation considered. Symptoms improved in the emergency department, chest pain-free at discharge. The symptoms have been present for greater than 24 hours, believe that 1 set of enzymes is sufficient to rule out acute coronary syndrome, discussed outpatient follow-up with cardiology with the patient, she is agreeable with this plan, return precautions for worsening symptoms were discussed with patient.. I considered the following discharge prescriptions or medication management in the emergency department Medications were administered in the Emergency Department. See MAR. Independent interpretation of the following test(s) in the Emergency Department X-Ray: My interpretation is No infiltrate seen on my interpretation of x-ray images. Test considered but Not performed: CT: Low suspicion for pulmonary embolus, CT angiogram is not indicated. Care significantly affected by the following chronic conditions: Diabetes. Counseling: I had a detailed discussion with the patient and/or guardian regarding the historical points, exam findings, and any diagnostic results supporting the discharge/admit diagnosis, lab results, radiology results, the need for outpatient follow up, to return to the emergency department if symptoms worsen or persist or if there are any questions or concerns that arise at home. Response to treatment: the patient's symptoms have markedly improved after treatment. 10/08 10:54 Order name: Basic Metabolic Panel; Complete Time: 12:45 10/08 10:54 Order name: CBC with Diff; Complete Time: 12:45 10/08 10:54 Order name: Troponin HS; Complete Time: 12:45 10/08 12:16 Order name: Liver (Hepatic) Function; Complete Time: 12:45 EDMS 10/08 12:16 Order name: Lipase; Complete Time: 12:45 EDMS 10/08 10:54 Order name: XRAY Chest (1 view); Complete Time: 12:02 10/08 10:54 Order name: EKG; Complete Time: 10:10/08 10:54 Order name: Cardiac monitoring; Complete Time: 12:02 10/08 10:54 Order name: EKG - Nurse/Tech; Complete Time: 10:54 10/08 10:54 Order name: IV Saline Lock; Complete Time: 12:02 10/08 10:54 Order name: Labs collected and sent; Complete Time: 12:02 10/08 10:54 Order name: O2 Per Protocol; Complete Time: 12:10/08 10:54 Order name: O2 Sat Monitoring; Complete Time: ld EC:13 Rate is 70 beats/min. Rhythm is regular, Normal Sinus Rhythm with No ectopy. Left axis rt deviation noted. AK interval is normal. QRS interval is normal. QT interval is normal. No Q waves. No ST changes noted. Interpreted by me. Administered Medications: 10:58 Drug: Aspirin PO Chewable Tablet 324 mg PO once; 81 mg tablets x 4 Route: PO; ld1 12:00 Follow up: Response: No adverse reaction aa5 Disposition Summary: 10/08/24 13:03 Discharge Ordered Notes: Location: Home rt Problem: new rt Symptoms: have improved rt Condition: Stable rt Diagnosis - Chest pain, unspecified rt Followup: rt - With: John Whaley MD - When: 2 - 3 days - Reason: Discharge Instructions: - Discharge Summary Sheet rt - Nonspecific Chest Pain, Adult rt Forms: - Medication Reconciliation Form rt - Antibiotic Education rt - Prescription Opioid Use rt - Patient Portal Instructions rt - Leadership Thank You Letter rt Signatures: Dispatcher [employer] EDMakeda Lackey RN RN ld1 Allan De La Rosa MD MD rt Pao Osborne RN aa5 Corrections: (The following items were deleted from the chart) 10:53 10:52 PMHx: "Minor heart attacks"; ld1 ld1 12:16 10:58 HEPATIC FUNCTION+C.LAB.BRZ ordered. EDMS EDMS 12:16 10:58 LIPASE+C.LAB.BRZ ordered. EDMS EDMS
[2024-10-08 14:12] VITALS: BP 153/71; TEMP 98.2; O2SAT 99
--- NOTE | 2024-10-11 12:18 | EKG ---
Test Date: 2024-10-08 Test Time: 10:51:54 Terminal Gauger: RAOUL MEASUREMENT RESULTS: Intervals: Rate: 70 OH: 168 QRSD: 82 QT: 398 QTc: 429 Plush: P: 38 OH: 168 QRS: -36 T: 46 INTERPRETIVE STATEMENTS: Normal sinus rhythm Left axis deviation Cannot rule out Anterior infarct, age undetermined Abnormal ECG Compared to ECG 01/06/2018 16:43:46 Sinus arrhythmia no longer present Myocardial infarct finding still present Electronically Signed On 10-11-24 12:10:24 CDT by Jack Salgado
== END 2024-10-08 13:54 | disposition home or self-care (01) ==
LOC: ER 10:43
DX: R07.9 Chest pain, unspecified (principal); Z86.73 Personal history of transient ischemic attack (TIA), and cerebral infarction without residual deficits
CPT/HCPCS: 36415; 71045; 80048; 80076; 83690; 84484; 85025; 93005; 99284